=== PATIENT | female | born 1960 | race Caucasian/White ===

== ENCOUNTER 2016-11-02 11:54 | Day surgery (SDC) | payer BC ==
--- NOTE | ~2016-11-02 | EGD ---
EGD REPORT [facility] [address] [address] NAME: JOSEFINA GUALLPA : 58 STATUS : REG [facility] PAT#: [id number] AGE: 56 ADM/REG DATE : 11/02/16 MR#: [id number] REPORT SERV DATE: 11/02/16 DICTATED BY: VIJAY AZEVEDO DATE: 11/02/16 REPORT STATUS : Draft [facility]ANS[facility]IBED [facility]: [facility] DATE: 11/02/16 Endoscopy Center Patient Name: Josefina Guallpa Date of : 1960 Attending MD: VIJAY AZEVEDO MD Procedure Date No Time: 11/02/2016 Procedure: Colonoscopy Indications: Chronic diarrhea Referring MD: GABINO BRYANT Medicines: Propofol per Anesthesia Complications: No immediate complications. Procedure: Pre-Anesthesia Assessment: - ASA Grade Assessment: IV - A patient with severe systemic disease that is a constant threat to life. After I obtained informed consent, the scope was passed under direct vision. Throughout the procedure, the patient's blood pressure, pulse, and oxygen saturations were monitored continuously. The PCF [id number] was introduced through the anus and advanced to the ileocolonic anastomosis. The colonoscopy was performed without difficulty. The patient tolerated the procedure well. Findings: There was evidence of a prior end-to-side ileo-rectal anastomosis in the proximal rectum. This was patent. This was characterized by healthy appearing mucosa. The terminal ileum appeared normal. scope passed 120 into ileum and 300 ml of fecal transplant liquid was instilled Impression: - Patent end-to-side ileo-rectal anastomosis. - The examined portion of the ileum was normal. Recommendation: - The patient will be observed post-procedure, until all discharge criteria are met. - Return to previous diet today. - Continue present medications. - The findings and recommendations were discussed with the patient and their family. - After the procedure, if you experience any pain in abdomen or chest,shortness of breath,fever,chills,blood in stool,rectal bleeding,vomiting of any material,nausea,black stools or weakness or dizziness, GO TO THE EMERGENCY IMMEDIATELY!!!!!!!!! EGD REPORT [address] [address] NAME: JOSEFINA GUALLPA : 58 STATUS : REG [facility] PAT#: [id number] AGE: 56 ADM/REG DATE : 11/02/16 MR#: [id number] REPORT SERV DATE: 11/02/16 DICTATED BY: VIJAY AZEVEDO. DATE: 11/02/16 REPORT STATUS : Draft TRANSCRIBED BY: [employer] DATE: 11/02/16 Procedure Code(s): --- Professional --- 20193, Colonoscopy, flexible, proximal to splenic flexure; diagnostic, with or without collection of specimen(s) by brushing or washing, with or without colon decompression (separate procedure) Diagnosis Code(s): --- Professional --- Z98.0, Intestinal bypass and anastomosis status K52.9, Noninfective gastroenteritis and colitis, unspecified CPT copyright 2013 [employer]. All rights reserved. The codes documented in this report are preliminary and upon procedures analyst review may be revised to meet current compliance requirements. Vijay Azevedo MD VIJAY AZEVEDO MD 11/02/2016 2:25 PM This report has been signed electronically. Number of Addenda: 0 Note Initiated On: 11/02/2016 1:46 PM [address] [address]
[~2016-11-02 11:54] MED LIST: ADVAIR INH; ASAB PO; ATIVAN PO; ATRONASAL6 NAS; ATV.5 PO; ATV1 PO; AUG500 PO; AZACT2 IV; BUSPAR15 M1 PO; BUSPAR30 MG PO; BUSPAR5 PO; CALTRA600D PO; CENTRUM PO; CLIMARA 0.1 MG0.1 MG TOP; CLIMARA0.1 MG TD; COMP10B PO; CORTEF20 MG PO; CYMBALTA PO; CYMBALTA60 PO; DEXILANT PO; DIL4TAB PO; DITRO5 PO; DOX25 PO; DOXEPIN PO; DURA100 TOP; DURA25 TOP; DURA50 TOP; ELESTRIN TD; ESTRACE VAG0.1 MG/GM V; ESTRACE VAGIN42.5 GM V; ESTRACE VAGINAL CREA V; ESTRADIOL2 MG OR; ESTRADIOL2 MG PO; EXELON4.6T TOP; Estradiol TD; FISH-EPA1000 MG PO; FLAG500TAB PO; FLAXSEED OIL1200 MG PO; FLEX PO; FLEXERIL PO; FLONASE NAS; FLUCON150 PO; FOSAMAX PLUS PO; K500 PO; KLONO1 PO; KLONO2 PO; KLOR-CON M2020 MEQ PO; L20 PO; LEVALBUTEROL INH; LEVOTHYROXIN75 MCG PO; LEVOTHYROXINE PO; LINZESS 290 M290 MCG PO; LIOR10 PO; LYRICA PO; LYRICA300 MG PO; MARI5 PO; MARINOL PO; METOCLOPRAMIDE PO; MINIPRESS 2 MG C2 MG PO; MIRALAXPKT PO; MOBIC15 MG PO; MORPHINE PO; MORPHINE SULFATE PO; MSIMMR15 PO; NATURA2 OPH; NEUR600 PO; OMNICEF300 PO; P10 PO; PCET PO; PHENERGAN (G25 MG/ML IM; PHENERGAN 2525 MG/ML IM; PLAQ200B PO; PR25 IM; PR25P IM; PROTONIX PO; PROVHFA INH; PROZAC40 MG PO; RANITIDINE300 MG PO; REG PO; REG10MGP IM; RESTORIL30 MG PO; SEROQUEL1C PO; SINGULAIR1 PO; SMOG ENEMA PR; SPIRO25 PO; SPIRO50 PO; SPIRONOLACTONE PO; SYN.025B PO; SYN.05 PO; TERAZOL V; TRANSSCOP TOP; TRAZ100 PO; TRAZODONE PO; V5 PO; VAGIFEM10 MCG VA; VAGIFEM25 MCG V; VALIUM10 MG PO; VANCOCIN HCL125 MG PO; VESICARE10 MG PO; VITAMIN C1000 MG PO; VITAMIN D1000 UNI1 PO; VITE PO; VOLTAREN1 % TOP; Vagifem V; WOMENS MULTI PO; XENICAL120 MG PO; XOPENEX0.31 MG INH; XOPENEX1.25 MG/3 INH; ZANTAC300 MG PO; ZEGERID1 CA1 PO; ZINC GLUCON50 MG PO; ZOFRAN8 PO; ZYRTEC ALLGY10 MG PO; [UNRECOGNIZED DRUG - CODE] PR; [UNRECOGNIZED DRUG - OTHER] PO; [UNRECOGNIZED DRUG - OTHER] PO; [UNRECOGNIZED DRUG - OTHER] PO; [UNRECOGNIZED DRUG - OTHER] V
[2016-12-30] MEDS ORDERED: morphine PO (15:09)
[2016-12-30] MEDS ORDERED: NUCYNTA50 MG PO (15:10)
[2016-12-30] MEDS ORDERED: MARI5 PO (15:10)
== END 2016-11-02 23:59 | disposition home or self-care (01) ==
LOC: DMU 11:54
PROVIDERS: Internal Medicine Gastroenterology
PROC: 0DJD8ZZ Inspection of Lower Intestinal Tract, Via Natural or Artificial Opening Endoscopic (ICD-10-PCS; principal; 2016-11-02 11:00)
DX: K52.9 Noninfective gastroenteritis and colitis, unspecified (principal); F03.90 Unspecified dementia, unspecified severity, without behavioral disturbance, psychotic disturbance, mood disturbance, and anxiety; G47.33 Obstructive sleep apnea (adult) (pediatric); J45.909 Unspecified asthma, uncomplicated; E11.43 Type 2 diabetes mellitus with diabetic autonomic (poly)neuropathy; K31.84 Gastroparesis; M19.90 Unspecified osteoarthritis, unspecified site; M79.7 Fibromyalgia; K21.9 Gastro-esophageal reflux disease without esophagitis; K58.9 Irritable bowel syndrome, unspecified; E03.9 Hypothyroidism, unspecified; D64.9 Anemia, unspecified; Z90.49 Acquired absence of other specified parts of digestive tract; Z88.8 Allergy status to other drugs, medicaments and biological substances; Z98.0 Intestinal bypass and anastomosis status; Z86.73 Personal history of transient ischemic attack (TIA), and cerebral infarction without residual deficits; Z99.89 Dependence on other enabling machines and devices; Z98.1 Arthrodesis status; Z91.040 Latex allergy status; Z79.899 Other long term (current) drug therapy; Z98.890 Other specified postprocedural states; Z90.710 Acquired absence of both cervix and uterus

== ENCOUNTER 2016-11-10 16:40 | Inpatient (IN) | payer BC ==
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
--- NOTE | ~2016-11-10 | EGD ---
EGD REPORT [facility] [address] [address] NAME: JOSEFINA GUALLPA : 58 STATUS : ADM IN PAT#: [id number] AGE: 56 ADM/REG DATE : 11/10/16 MR#: [id number] REPORT SERV DATE: 11/14/16 DICTATED BY: VIJAY AZEVEDO DATE: 11/14/16 REPORT STATUS : Draft [facility]ANS[facility]ED [facility]: [facility] DATE: 11/14/16 Endoscopy Center Patient Name: Josefina Guallpa Date of : 1960 Attending MD: VIJAY AZEVEDO MD Procedure Date No Time: 11/14/2016 Procedure: Upper GI endoscopy Indications: Dysphagia Referring MD: GABINO BRYANT Medicines: Propofol per Anesthesia Complications: No immediate complications. Procedure: Pre-Anesthesia Assessment: - ASA Grade Assessment: III - A patient with severe systemic disease. After obtaining informed consent, the endoscope was passed under direct vision. Throughout the procedure, the patient's blood pressure, pulse, and oxygen saturations were monitored continuously. The GIF H190 [id number] was introduced through the mouth, and advanced to the third part of duodenum. The upper GI endoscopy was accomplished without difficulty. The patient tolerated the procedure well. Findings: Patchy candidiasis was found in the lower third of the esophagus. A small amount of a phytobezoar was found in the gastric antrum. The examined duodenum was normal. Impression: - Monilial esophagitis. - A small amount of a phytobezoar in the stomach. - Normal examined duodenum. Procedure Code(s): --- Professional --- 35186, Esophagogastroduodenoscopy, flexible, transoral; diagnostic, including collection of specimen(s) by brushing or washing, when performed (separate procedure) Diagnosis Code(s): --- Professional --- B37.81, Candidal esophagitis T18.2XXA, Foreign body in stomach, initial encounter R13.10, Dysphagia, unspecified CPT copyright 2013 [employer]. All rights reserved. EGD REPORT [address] [facility] [address] NAME: JOSEFINA GUALLPA : 58 STATUS : ADM IN [facility]#: [id number] AGE: 56 ADM/REG DATE : 11/10/16 MR#: [id number] REPORT SERV DATE: 11/14/16 DICTATED BY: VIJAY AZEVEDO. DATE: 11/14/16 REPORT STATUS : Draft TRANSCRIBED BY: [employer] DATE: 11/14/16 The codes documented in this report are preliminary and upon remote medical coder review may be revised to meet current compliance requirements. Vijay Azevedo MD VIJAY AZEVEDO MD 11/14/2016 2:45 PM This report has been signed electronically. Number of Addenda: 0 Note Initiated On: 11/14/2016 2:14 PM Scope Withdrawal Time 0 hours 0 minutes 0 seconds [address] [place] [address]
--- NOTE | ~2016-11-10 | DS ---
Discharge Summary [facility] [address] [place]. 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 CONSULTATIONS: To hospitalist, Vascular Surgery, and Psychiatry. PROCEDURES: Right IJ Port-A-Cath insertion. CT of the abdomen and pelvis done on the 11/16/2016 showing partial colectomy, right lower quadrant anastomosis, short length overall residual colon. CT of the brain done on 11/19/[address] head CT. No acute intracranial abnormality. Ultrasound of the lower extremity on 11/15/2016 showing negative bilateral lower extremity ultrasounds. Swallowing study done on 11/18/2016. CURRENT PHYSICAL FINDINGS AND HISTORY OF PRESENT ILLNESS: Please see initial dictated H and P as well as consultations from prior physicians. INTERIM SUMMARY: The patient was admitted with volume depletion, diarrhea, dehydration, nausea, vomiting, and dysphagia. Vital signs at the time of admission: BP was 119/63, temperature was 98.4, and the patient has had no significant temperature during her hospital stay. Initial creatinine was 1.39. It appeared her baseline was between 1.2 and 1.3. She did reach a high creatinine of 2.06 on 11/20/2016, felt to be related to her CT scan. Repeat was 1.58 on the 11/21/2016. Stool for C difficile was negative on the . HOSPITAL COURSE: The patient was admitted with above complaints. She was admitted by the GI Service. Home medications were reviewed and dosed appropriately. Lab work and tests were as noted above. Hospitalist was consulted for edema and shortness of breath. Psychiatry was consulted for her anxiety. Hospitalist Service initially placed her on DuoNeb. Psychiatry saw her, changed her Ativan, and upped her Seroquel. Vascular access was a problem and thus Vascular Surgery was consulted for a line placement. Her symptoms continued, so GI changed her Protonix to Pepcid. She was put on DVT prophylaxis. She was given IV fluids as needed. Echocardiogram and Dopplers were ordered to assess for possible causes of her dyspnea and dependent edema, and these were negative. She was also screen for adrenal insufficiency, although her a.m. cortisol was low. She had appropriate response to her cortisol stim test, so her steroids were tapered off without consequence. As she titrated up on her Seroquel, she seemed to have excess sedation, adjustments were made. She also performed a swallow study and thicken liquids rather than a mechanical soft per those recommendations. She then underwent CT scan, she had a slight bump in her creatinine as Discharge Summary [address] [place]. [address] NAME: JOSEFINA ARNETT : 58 STATUS : ADM IN PAT#: [id number] AGE: 56 ADM/REG DATE : 11/10/16 MR#: [id number] REPORT SERV DATE: 11/21/16 DICTATED BY: KAYLA ARIAS DATE: 11/21/16 REPORT STATUS : Draft TRANSCRIBED BY: MELLY DATE: 11/21/16 noted above, but this is currently trending down. She responded well to diuretics for her dependent edema, and these were slowly tapered back and held when her creatinine was somewhat high. GI continued to follow through evaluation and titrated her morphine she also received some albumin and Lasix. She continued to progress well. She was ambulating. She was tolerating p.o. Medications were helping her high output state. Neurology saw her for some complaints of stuttering. Outpatient followup and Speech Therapy were recommended. The patient was felt to reach maximum hospital benefit and was discharged on 11/21/2016. Prescriptions were for Klonopin 1 mg half to 1 q.h.s. Otherwise, she will continue Flexeril 10 t.i.d., Caltrate 600+ D at h.s., Centrum multivitamin, Sinequan 25 at h.s., Kytril 1 mg t.i.d., levothyroxine 50, Imodium 2 four times a day, Claritin 10, morphine 5 b.i.d. and dose decreased from 15 q.i.d., multivitamin one per day, Ditropan 5 b.i.d., Lyrica 300 at h.s., Protonix 40, Aldactone 25, Vagifem, Hair and Skin and Nails, Artificial Tears, Flonase inhaler, and Seroquel dose will be 100 q.h.s. Outpatient per Speech Therapy. Follow up Psychiatry. Follow up Dr. Romero and follow up with her PCP after above. She has a psychiatric appointment on this Monday and further Seroquel adjustments per them. DICTATED BY: Kayla Arias M.D. TLF/MODL Kayla Arias M.D. / [id number] CC: Robi Yancey M.D.
--- NOTE | ~2016-11-10 | HP ---
History And Physical [address] [place]. [address] NAME: JOSEFINA ARNETT : 58 STATUS : ADM IN [facility]#: [id number] AGE: 56 ADM/REG DATE : 11/10/16 MR#: [id number] REPORT SERV DATE: 11/10/16 DICTATED BY: VIJAY AZEVEDO DATE: 11/10/16 REPORT STATUS : Draft TRANSCRIBED BY: MODJaziel DATE: 11/10/16 DATE OF ADMISSION: 11/10/2016 CHIEF COMPLAINT: Refractory diarrhea, dehydration, nausea, vomiting, and dysphagia. 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 She has had recurrent C difficile. She has had at least four episodes. Ten days ago, she had a fecal microbiota transplant. She is on morphine four times a day to control her diarrhea. She does have a gastric pacer for gastroparesis. For the last few days, she is having dysphagia, vomiting, feels bad, orthostatic dizziness. Her C difficile two days ago was negative. Laboratory work did not show any dehydration. PAST MEDICAL HISTORY: 1. Gastroparesis. 2. Some loss of cognitive ability. SURGICAL HISTORY: 1. Total colectomy. 2. Ileorectal anastomosis. 3. Cystocele. 4. Rectocele. 5. Gastric pacer. 6. Kidney stones. 7. Oophorectomy. 8. Spinal surgery. 9. Cholecystectomy. FAMILY HISTORY: Negative for cancer or Sharma syndrome. MEDICATIONS AT HOME: Pantoprazole 40 mg b.i.d., doxepin, Synthroid, Marinol, lorazepam, Flexeril, Lyrica, iron, trazodone, morphine for diarrhea, Seroquel. Recently finished Dificid. ALLERGIES: NAPROSYN. PHYSICAL EXAMINATION: VITAL SIGNS: Blood pressure 127/80; no orthostatic change. Pulse 100, temperature 97.9. GENERAL: Looks moderately ill, disheveled. HEENT: Pupils are equal, reactive to light and accommodation. Mouth, dry mucous membranes. Trachea, midline. NECK: No limitation of motion. CHEST: Clear to auscultation and percussion. CARDIAC: Normal. No murmur or gallop. ABDOMEN: Gastric pacer palpated in the right lower quadrant. EXTREMITIES: Have some mild lower extremity edema. History And Physical [place] [address] [facility] [place]. [address] NAME: JOSEFINA ARNETT : 58 STATUS : ADM IN [facility]#: [id number] AGE: 56 ADM/REG DATE : 11/10/16 MR#: [id number] REPORT SERV DATE: 11/10/16 DICTATED BY: VIJAY AZEVEDO DATE: 11/10/16 REPORT STATUS : Draft TRANSCRIBED BY: MELLY DATE: 11/10/16 IMPRESSION: 1. Diarrhea, increasing from somewhat shortened bowel with total colectomy. 2. Clostridium difficile negative. 3. Nausea and vomiting. 4. Dysphagia. 5. Some psychiatric difficulty. 6. Some loss of cognitive feeling. 7. 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 PLAN: 1. We will admit for IV fluids. 2. Pain control. 3. Psych and Medicine consult. 4. May need a PICC or port placed. MG/MODL Vijay Azevedo M.D. / [id number] CC: Robi Yancey M.D.
--- NOTE | ~2016-11-10 | OP ---
Record Of Operation [facility] [address] [place]. [address] NAME: JOSEFINA ARNETT : 58 STATUS : ADM IN PAT#: [id number] AGE: 56 ADM/REG DATE : 11/10/16 MR#: [id number] REPORT SERV DATE: 11/15/16 DICTATED BY: KEM NEWTON DATE: 11/14/16 REPORT STATUS : Draft TRANSCRIBED BY: MELLY DATE: 11/14/16 DATE OF PROCEDURE: 11/11/2016 PREOPERATIVE DIAGNOSIS: Phlebosclerosis. POSTOPERATIVE DIAGNOSIS: Phlebosclerosis. PROCEDURE: Right IJ Port-A-Cath insertion. SURGEON: Kem Newton M.D. BILL COLLECTOR: None. ANESTHESIA: MAC plus local. INDICATIONS: The patient is a 56-year-old female with a history of difficult IV access and the need for intravenous hydration. She has had a port placed in the past, but this was removed. She now needs a new port for fluid administration. Thus, she was consented for intervention. DESCRIPTION OF PROCEDURE: After informed consent was obtained, the patient was taken to the operating room and placed in the supine position on the operating table. Monitored anesthesia was administered. The patient's right neck and chest were prepped and draped in usual sterile fashion. Ultrasound-guided access was obtained to the right internal jugular vein. The ultrasound image was documented on the chart. I passed a wire centrally. I anesthetized the right chest. I made a transverse skin incision and created a subcutaneous pocket. I tunneled the port tubing from the right chest to the right neck. I used fluoroscopy to estimate the catheter length. I cut the catheter, attached it to the port, and fixated the port within the subcutaneous pocket. I inserted a peel-away sheath over the aforementioned wire using fluoroscopic guidance. I inserted the catheter into the away sheath under fluoroscopy and peeled away the sheath. I confirmed that the catheter was not kinked. It aspirated and flushed well. The right chest wound was closed along with the right neck wound. The patient tolerated the procedure well without any intraprocedural complications noted. BUSINESS DEVELOPMENT RECRUITER/MELLY Kem Newton M.D. / [id number] CC: Shorty Engel M.D. Record Of Operation [address] [address] NAME: JOSEFINA ARNETT : 58 STATUS : ADM IN PAT#: [id number] AGE: 56 ADM/REG DATE : 11/10/16 MR#: [id number] REPORT SERV DATE: 11/15/16 DICTATED BY: KEM NEWTON DATE: 11/14/16 REPORT STATUS : Draft TRANSCRIBED BY: MODL DATE: 11/14/16 Vijay Romero M.D.
--- NOTE | ~2016-11-10 | HP ---
History And Physical [place] [id number] [facility] [place]. [address] NAME: JOSEFINA ARNETT : 58 STATUS : ADM IN [facility]#: [id number] AGE: 56 ADM/REG DATE : 11/10/16 MR#: [id number] REPORT SERV DATE: 11/10/16 DICTATED BY: VIJAY AZEVEDO DATE: 11/10/16 REPORT STATUS : Draft TRANSCRIBED BY: MODL DATE: 11/10/16 DATE OF ADMISSION: 11/10/2016 CHIEF COMPLAINT: Nausea, vomiting, diarrhea. HISTORY OF PRESENT ILLNESS: This patient has a history of total colectomy with ileorectal anastomosis. She has had four episodes of C. diff. Recently treated with Dificid. She had a fecal transplant about 10 days ago. She is having diarrhea, 15-20 stools a day. Feels weak. Orthostatic dizziness. She takes liquid morphine 15 mg four times a day to control her diarrhea from her shortened bowel. She has been unable to keep it down. She is having dysphagia. She does have a gastric pacer for gastroparesis. Last battery change about two years ago. She is having dysphagia. Feels weak. Recent laboratory work was unremarkable. C. difficile was negative. She recently had a kidney infection around July and was started on IV vancomycin and Azactam. PAST MEDICAL HISTORY: 1. Gastroparesis. 2. Recurrent urinary tract infection. 3. Renal stones. 4. 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 5. History of some asthma. 6. Problem with cognitive difficulty. PAST SURGICAL HISTORY: 1. Colectomy as noted. 2. Cystocele/rectocele repair. 3. Oophorectomy. 4. Spinal surgery. FAMILY HISTORY: No Sharma type syndrome. MEDICATIONS AT HOME: Include pantoprazole, doxepin, Synthroid, lorazepam, Flexeril, Zyrtec, Lyrica, iron, morphine, clonazepam, and Seroquel. Recently finished Dificid. ALLERGIES: PENICILLINS. PHYSICAL EXAMINATION: GENERAL: Looks ill. VITAL SIGNS: Blood pressure 110/60, pulse 100. Orthostatic drop. HEENT: Dry mucous membranes. Has a rash on the right side of her mouth on her chin. Trachea is midline. No adenopathy. Thyroid not increased. CHEST: Clear to auscultation and percussion. CARDIAC: No murmur or gallop. ABDOMEN: Soft. Pacer felt in the right lower quadrant. EXTREMITIES: Has some 1 to 2+ lower extremity edema. History And Physical [address] [place]. [address] NAME: JOSEFINA ARNETT : 58 STATUS : ADM IN [facility]#: [id number] AGE: 56 ADM/REG DATE : 11/10/16 MR#: [id number] REPORT SERV DATE: 11/10/16 DICTATED BY: VIJAY AZEVEDO DATE: 11/10/16 REPORT STATUS : Draft TRANSCRIBED BY: MELLY DATE: 11/10/16 IMPRESSION: 1. Problem with nausea, vomiting, increased diarrhea, dehydration. Recently treated with FMT. Has negative C. diff. 2. Dysphagia. 3. Chronic abdominal pain. 4. History of gastroparesis with pacer. 5. Possible strep infection on the face. 6. Psychiatric problem with depression and also cognitive function. 7. History of recent severe urinary tract infection. PLAN: 1. We will admit for IV hydration. 2. Pain control. 3. Medicine and Psych consults. 4. May need central line placed for chronic access such as port. 5. May also consider cardiac echo. It should be noted her O2 saturation was 91% on room air. MG/MELLY Vijay Azevedo M.D. / [id number] CC: Robi Yancey M.D.
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
--- NOTE | ~2016-11-10 | IDS ---
Interim Discharge Summary [facility] [address] [place]. [address] NAME: JOSEFINA ARNETT : 58 STATUS : ADM IN PAT#: [id number] AGE: 56 ADM/REG DATE : 11/10/16 MR#: [id number] REPORT SERV DATE: 11/17/16 DICTATED BY: VIJAY AZEVEDO DATE: 11/16/16 REPORT STATUS : Draft TRANSCRIBED BY: MODL DATE: 11/16/16 ADMISSION DATE: 11/10/2016 DISCHARGE DATE: DISCHARGE DIAGNOSES: 1. 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 2. Gastroparesis with gastric pacemaker. 3. Lower extremity edema. 4. Status post fecal transplant. CASE HISTORY: This patient has a complicated medical history. She had a total colectomy and ileal rectal anastomosis at [facility], that was for refractory constipation. She has had four episodes of C. diff treated with recently Dificid. She had a fecal transplant one and half weeks prior to admission. She has significant diarrhea with 15 to 20 stools a day. Orthostatic dizziness. Liquid morphine has been somewhat controlling the diarrhea. She complained of dysphagia. She relates a history of Sjogren's, rheumatoid arthritis, bipolar disorder. Medications at home consisted of oral morphine liquid, Klonopin, Flexeril, Vagifem, Flonase, Kytril, Ditropan, Seroquel. On admission, she had mild orthostatic dizziness. She has a gastric pacer palpated. She does have some lower extremity edema. Admitting lab was fairly unremarkable. HOSPITAL COURSE: The patient was treated with IV fluids. She did have a skin rash on her face treated with Cleocin topical. Hospitalists were consulted. Due to lack of access, Port-A-Cath was placed. She had an EGD which showed some mild yeast. She had significant dysphagia. She really was not eating much. Increasing the morphine did help her diarrhea. She was seen by Dr. Chema Soriano. Also, Dr. Worrell saw her. Dr. Soriano thought she was in a more manic phase of her bipolar disorder. He increased her Seroquel to 200 at bedtime. Also, had increased her Klonopin to a milligram. She improved during the hospital stay, but was still having difficulties, really not eating much. It is unclear if the increase morphine to control her diarrhea is aggravating her gastroparesis. At the time of this dictation, CT scan pending. Her CHRISS was negative for connective tissue disease. She had a recent C. difficile prior to admission that was normal. MG/MODL Vijay Azevedo M.D. / [id number] CC: Interim Discharge Summary [address] [place] [address] NAME: JOSEFINA ARNETT : 58 STATUS : ADM IN [facility]#: [id number] AGE: 56 ADM/REG DATE : 11/10/16 MR#: [id number] REPORT SERV DATE: 11/17/16 DICTATED BY: VIJAY AZEVEDO DATE: 11/16/16 REPORT STATUS : Draft TRANSCRIBED BY: MODL DATE: 11/16/16 Robi Yancey M.D.
--- NOTE | ~2016-11-10 | CN ---
Consultation Report [facility] [address] [place]. [address] NAME: JOSEFINA ARNETT : 58 STATUS : ADM IN PAT#: [id number] AGE: 56 ADM/REG DATE : 11/10/16 MR#: [id number] REPORT SERV DATE: 11/11/16 DICTATED BY: SERENA FINK DATE: 11/11/16 REPORT STATUS : Draft TRANSCRIBED BY: MODJaziel DATE: 11/11/16 DATE OF CONSULTATION: CHIEF COMPLAINT: Nausea, vomiting, diarrhea. The patient sent from Dr. Romero's office for consultation for edema and dyspnea and shortness of breath episodes. HISTORY OF PRESENT ILLNESS: The patient is a 56-year-old female with past medical history of colectomy with ileorectal anastomosis, four episodes of C. diff treated with Dificid and fecal transplant approximately one and half weeks ago, however, is still having significant amount of diarrhea with 15-20 stools per records and symptomatic with orthostatic dizziness. She is on multiple medications including liquid morphine q.i.d. for diarrhea for shortened bowel. She has been having such difficulty with symptoms that she has gotten progressively weaker, however, she has also noted that she has been gaining more weight. Review of prior imaging as noted; significant amount of body habitus changes. The patient has also noted 2+ to 3+ edema in her legs. She did have recent fall with subsequent bruising, but this has healed in the right leg. The patient does not report any improvement or worsening symptoms for the shortness of breath except when she has eating or swallowing episode she reports that she feels like she is choking and food essentially get stuck and has had then chest pain at that time. There is additional mild nausea during that episode, is becoming more frequent. REVIEW OF SYSTEMS: For additional 10-point review of systems negative except for that noted in the HPI. PAST MEDICAL HISTORY: Gastroparesis, UTIs, renal stones, recurrent C diff, Sjogren's, reflux, rheumatoid arthritis, PTSD, bipolar psychosis, gastric pacer secondary to gastroparesis, hypertension, hypothyroidism, chronic pain on chronic narcotics. SURGICAL HISTORY: Gastric pacemaker, total colectomy with Sjogren's and cystoscopy with retrograde pyelogram recently for left obstructing ureteral stone, Dr. Quijano. ALLERGIES: NAPROSYN AND ADHESIVES. SOCIAL HISTORY: No smoking, alcohol, or illicits. FAMILY HISTORY: Coronary artery disease, hypertension, cancer. HOME MEDICATIONS: Bion, Caltrate, Zyrtec, Klonopin, Flexeril, Sinequan, Vagifem, Flonase, Kytril, levothyroxine, Ativan, morphine, Centrum, Ditropan, Protonix, Lyrica, Seroquel, Aldactone, and Hair and Skin Nail tablet. PHYSICAL EXAMINATION: VITAL SIGNS: The patient's blood pressure 120/71, O2 saturations 94% on room air, temperature 97.4, pulse 76, respirations 18. GENERAL: Appears older than stated age. No acute distress. Consultation Report [address] [place]. [address] NAME: JOSEFINA ARNETT : 58 STATUS : ADM IN [facility]#: [id number] AGE: 56 ADM/REG DATE : 11/10/16 MR#: [id number] REPORT SERV DATE: 11/11/16 DICTATED BY: SERENA FINK DATE: 11/11/16 REPORT STATUS : Draft TRANSCRIBED BY: MELLY DATE: 11/11/16 EYES: Does have mild haze with lid that is greater than 50% of what appears to be somewhat dazed but is alert and oriented. No proptosis. No scleral icterus. EOMI. HEENT: Moist mucous membranes. Tongue midline. Head is normocephalic, atraumatic. NECK: No JVD. CHEST: Equal chest expansion. No wheezes, no rales grossly. Mildly decreased lung sounds in lower lung jurado. CV: Intact regular rate. No rubs. 3+ edema bilaterally. ABDOMEN: Soft, nontender, nondistended. Bowel sounds positive. MUSCULOSKELETAL: Moves all extremities x4. SKIN: Warm, dry. NEUROLOGIC: Hand symmetrical hand strength. PSYCH: Appears appropriate mood and affect. LABS: CMP: BUN creatinine 11 and 1.39, sodium 137, potassium 4.5, chloride 103, bicarb 26, lipase 72. CRP 29.7, alkaline phosphatase 134. CBC; grossly within normal limits. C. diff recently were negative. ASSESSMENT AND PLAN: 1. Shortness of breath. 2. Edema. 3. Diarrhea. 4. Anxiety. 5. Gastroparesis history with gastric pacemaker. PLAN: 1. For shortness of breath when discussion with the patient, the patient reports these are episodes that have happened during her swallowing episodes when she has subsequent choking episodes, IT last about 3 to 4 minutes, questionable achalasia component. We will check chest x-ray as the patient does additionally have edema. We will check TSH and BNP. 2. For edema check; TSH, BMP, cortisols, CMP for liver profile. She do not have any acute hepatomegaly on exam currently but notable physical changes when reviewing her prior pictures and 3+ edema bilaterally. If BNP elevated may require echocardiogram. 3. Diarrhea, recent fecal transplant workup per Dr. Levin. 4. Anxiety, on multiple medications that includes medications for insomnia. 5. Gastroparesis. The patient is questioning pacer failure, has symptoms currently similar to which the patient had in the past with prior pacer battery failure. Monitor clinically, overall symptoms. DDN/MELLY Serena Fink MD Consultation Report [address] [address] NAME: JOSEFINA ARNETT : 58 STATUS : ADM IN [facility]#: [id number] AGE: 56 ADM/REG DATE : 11/10/16 MR#: [id number] REPORT SERV DATE: 11/11/16 DICTATED BY: SERENA FINK DATE: 11/11/16 REPORT STATUS : Draft TRANSCRIBED BY: MODL DATE: 11/11/16 / [id number] CC: iVjay Romero M.D. Shorty Engel M.D.
--- NOTE | ~2016-11-10 | DS ---
Discharge Summary [facility] [address] [place]. [address] NAME: JOSEFINA ARNETT : 58 STATUS : DIS IN PAT#: [id number] AGE: 56 ADM/REG DATE : 11/10/16 MR#: [id number] REPORT SERV DATE: 11/22/16 DICTATED BY: VIJAY AZEVEDO DATE: 11/21/16 REPORT STATUS : Draft TRANSCRIBED BY: MODL DATE: 11/21/16 ADMISSION DATE: 11/10/2016 DISCHARGE DATE: 11/21/2016 FINAL DIAGNOSES: 1. 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 2. Gastroparesis status post gastric pacemaker. 3. Status post fecal transplant for Clostridium difficile colitis. 4. Oropharyngeal dysphagia of unclear etiology may be a neuromuscular dysfunction of the hypopharynx. CASE HISTORY: This is an addition to the interim discharge summary dictated 11/16. The patient improved since the previous interim discharge summary as far as the peripheral edema, she was given Lasix and albumin. CT scan of the abdomen was negative. She did notice some transient increase in kidney injury with a creatinine went from normal up to 2.06 and came down to 1.58 with hydration of normal saline. This felt that she may have been related to the IV dye from the CT plus mild volume depletion. Her calcium went from a high of 11.5, down to 9.7. Her brain CT was negative. Because of some aura of dysphagia, she did have a swallowing study which showed some aspiration though not deep during the study. She had pooling in the vallecula and piriform sinuses. Speech therapy recommended swallow mechanical soft diet with nectar thick it. Because of the oropharyngeal dysphagia, neurology was consulted. She also developed stuttering. The neurologist Dr. Hooks felt that some of this might have been psychogenic. Brain CT was negative. The speech therapist thought [id number] oropharyngeal dysphagia characterized by decreased tongue base retraction, and decreased laryngeal elevation, and decreased epiglottic inversion. She did seem to do better on the diet. Her creatinine did improve with IV fluids going down from 2.06 to 1.58, her baseline is probably 0.87 to 1. It should be noted, even though her serum cortisol was low she had an appropriate response to Cortrosyn stimulation test. She was given Diflucan for possible Nicky and did not notice any improvement. On one or two oral morphine liquid 5 mg twice a day plus Imodium she was having a fairly normal stools. PLAN: The patient will be hopefully arrange for Outpatient Psychiatric Therapy. She will continue on a mechanical soft diet with honey thickened liquids. Medicines include doxepin 25 mg h.s., Kytril 1 mg t.i.d., Synthroid 50 mcg daily, loperamide 2 mg 4 times a day, morphine liquid 5 mg once or twice a day, oxybutynin 5 mg daily, Lyrica 150 mg at bedtime, Seroquel 300 mg at bedtime, Pantoprazole 40 mg daily. She will be arranged to have speech therapy for her swallowing as well as psychiatric evaluation. Follow up in a few weeks in the office. Prognosis is guarded of course. DICTATED BY: Vijay Azevedo M.D. Discharge Summary [address] [address] NAME: JOSEFINA ARNETT : 58 STATUS : DIS IN PAT#: [id number] AGE: 56 ADM/REG DATE : 11/10/16 MR#: [id number] REPORT SERV DATE: 11/22/16 DICTATED BY: VIJAY AZEVEDO DATE: 11/21/16 REPORT STATUS : Draft TRANSCRIBED BY: MELLY DATE: 11/21/16 /MELLY Vijay Azevedo M.D. / [id number] CC: Robi Yancey M.D.
[2016-11-10] MEDS ORDERED: [UNRECOGNIZED DRUG - OTHER] PO (17:42)
[2016-11-10] MEDS ORDERED: MORPHINE SUL PO (17:42)
[2016-11-10] MEDS ORDERED: KLONO1 PO (17:42)
[2016-11-10] MEDS ORDERED: LEVOTHYROXIN50 MCG PO (17:43)
[2016-11-10] MEDS ORDERED: FLEX PO (17:43)
[2016-11-10] MEDS ORDERED: ATV1 PO (17:43)
[2016-11-10] MEDS ORDERED: SEROQUEL1C PO (17:43)
[2016-11-10] MEDS ORDERED: LYRICA300 MG PO (17:43)
[2016-11-10] MEDS ORDERED: DITRO5 PO (17:44)
[2016-11-10] MEDS ORDERED: ZYRTEC ALLGY10 MG PO (17:44)
[2016-11-10] MEDS ORDERED: SPIRO50 PO (17:44)
[2016-11-10] MEDS ORDERED: DOX25 PO (17:44)
[2016-11-10] MEDS ORDERED: PROTONIX PO (17:44)
[2016-11-10] MEDS ORDERED: CENTRUM PO (17:45)
[2016-11-10] MEDS ORDERED: VAGIFEM10 MCG V (17:45)
[2016-11-10] MEDS ORDERED: HAIR/SKIN/NAILS PO (17:46)
[2016-11-10] MEDS ORDERED: CALTRA600D PO (17:46)
[2016-11-10] MEDS ORDERED: FLONASE NAS (17:46)
[2016-11-10] MEDS ORDERED: BION TEARS (17:46)
[2016-11-10 18:07] LABS: BASOPHILS 0.1 %; BASOPHILS ABSOLUTE 0.01 10/3/uL (0.0-0.16); EOSINOPHILS 2.1 %; HEMATOCRIT 36.3 % (36.0-48.0); HEMOGLOBIN 12.3 g/dL (12.0-16.0); IMMATURE GRANULOCYTES 0.2 %; IMMATURE GRANULOCYTES ABSOLUTE 0.02 10/3/uL (0.0-0.11); LYMPHOCYTES 12.2 %; LYMPHOCYTES ABSOLUTE 1.16 10/3/uL (0.67-4.30); MEAN CORPUS HGB CONC 33.9 g/dL (32.0-36.0); MEAN CORPUSCULAR HEMOGLOB 30.5 pg (26.0-34.0); MEAN CORPUSCULAR VOLUME 90.1 fL (80-100); MEAN PLATELET VOLUME 10.5 fL (9.2-13.0); MONOCYTES 10.1 %; MONOCYTES ABSOLUTE 0.96 10/3/uL (0.21-1.20); NEUTROPHILS 75.3 %; NEUTROPHILS ABSOLUTE 7.14 10/3/uL (2.02-8.40); RBC DISTRIBUTION WIDTH 13.3 % (12.0-16.0); RED CELL COUNT 4.03 10/6/uL (4.0-5.6)
[2016-11-10 18:08] LABS: MANUAL DIFF NO %; PLATELET COUNT 213 10/3/uL (150-400); WHITE BLOOD CELLS 9.5 10/3/uL (4.5-10.5)
[2016-11-10 18:21] LABS: A/G RATIO 1.1 (0.7-1.9); ALBUMIN 3.6 G/DL (3.5-5.0); ALKALINE PHOSPHATASE 134 U/L (45-117); C-REACTIVE PROTEIN 29.7 MG/L (<8.0); CALCIUM, SERUM 8.8 MG/DL (8.5-10.4); CHLORIDE, SERUM 103 MMOL/L (96-112); CO2 (CARBON DIOXIDE) 26 MMOL/L (24-34); CREATININE 1.39 MG/DL (0.55-1.02); GFR AFRICAN AMERICAN 49 ML/MIN (>=60); GFR NON AFRICAN AMERICAN 42 ML/MIN (>=60); GLOBULIN 3.3 G/DL (2.5-4.1); GLUCOSE, SERUM 77 MG/DL (60-99); SGPT(ALT) 26 U/L (5-65); SODIUM, SERUM 137 MMOL/L (135-148); TOTAL BILIRUBIN 0.6 MG/DL (0-1.2); TOTAL PROTEIN 6.9 G/DL (6.0-8.5)
[2016-11-10 18:27] LABS: BUN (BLOOD UREA NITROGEN) 11 MG/DL (6-23); POTASSIUM, SERUM 4.5 MMOL/L (3.5-5.3); SGOT(AST) 26 U/L (5-40)
[2016-11-11 07:10] LABS: BASOPHILS 0 %; EOSINOPHILS 5.2 %; HEMATOCRIT 34.1 % (36.0-48.0); HEMOGLOBIN 11.5 g/dL (12.0-16.0); LYMPHOCYTES 24.5 %; LYMPHOCYTES ABSOLUTE 0.95 10/3/uL (0.67-4.30); MEAN CORPUS HGB CONC 33.7 g/dL (32.0-36.0); MEAN CORPUSCULAR HEMOGLOB 30.6 pg (26.0-34.0); MEAN CORPUSCULAR VOLUME 90.7 fL (80-100); MEAN PLATELET VOLUME 10.1 fL (9.2-13.0); MONOCYTES 13.4 %; MONOCYTES ABSOLUTE 0.52 10/3/uL (0.21-1.20); NEUTROPHILS 56.9 %; PLATELET COUNT 159 10/3/uL (150-400); RBC DISTRIBUTION WIDTH 13.4 % (12.0-16.0); RED CELL COUNT 3.76 10/6/uL (4.0-5.6)
[2016-11-11 07:11] LABS: MANUAL DIFF NO %; WHITE BLOOD CELLS 3.9 10/3/uL (4.5-10.5)
[2016-11-11 07:24] LABS: BUN (BLOOD UREA NITROGEN) 10 MG/DL (6-23); CALCIUM, SERUM 8.2 MG/DL (8.5-10.4); CHLORIDE, SERUM 110 MMOL/L (96-112); CO2 (CARBON DIOXIDE) 23 MMOL/L (24-34); CREATININE 1.02 MG/DL (0.55-1.02); FREE T4 1.28 NG/DL (0.76-1.46); GFR AFRICAN AMERICAN 71 ML/MIN (>=60); GFR NON AFRICAN AMERICAN 61 ML/MIN (>=60); GLUCOSE, SERUM 80 MG/DL (60-99); POTASSIUM, SERUM 4.1 MMOL/L (3.5-5.3); SGOT(AST) 13 U/L (5-40); SGPT(ALT) 19 U/L (5-65); SODIUM, SERUM 141 MMOL/L (135-148); TOTAL BILIRUBIN 0.4 MG/DL (0-1.2); TOTAL PROTEIN 5.7 G/DL (6.0-8.5); ULTRASENSITIVE TSH 0.793 MCIU/ML (0.358-3.740)
[2016-11-11 07:25] LABS: ALBUMIN 2.8 G/DL (3.5-5.0); ALKALINE PHOSPHATASE 106 U/L (45-117); GLOBULIN 2.9 G/DL (2.5-4.1)
[2016-11-11 13:05] LABS: ASCORBIC ACID (UR NOT ORDER) NEG (NEG); BILIRUBIN, URINE NEGATIVE (NEG); KETONE, URINE NEGATIVE (NEG); LEUKOCYTE ESTERASE(NOT OR TRACE (NEG); WBC (NOT ORDERED) (RFLEX) 6 (0-5)
[2016-11-12 07:31] LABS: ALBUMIN 3.1 G/DL (3.5-5.0); ALKALINE PHOSPHATASE 112 U/L (45-117); BUN (BLOOD UREA NITROGEN) 7 MG/DL (6-23); CALCIUM, SERUM 8.7 MG/DL (8.5-10.4); CHLORIDE, SERUM 112 MMOL/L (96-112); CO2 (CARBON DIOXIDE) 26 MMOL/L (24-34); CREATININE 0.88 MG/DL (0.55-1.02); DIRECT BILIRUBIN 0.1 MG/DL (0.0-0.4); GFR AFRICAN AMERICAN 85 ML/MIN (>=60); GFR NON AFRICAN AMERICAN 73 ML/MIN (>=60); GLUCOSE, SERUM 66 MG/DL (60-99); INDIRECT BILIRUBIN(NOT ORDER) 0.3 MG/DL (0.1-0.9); PHOSPHORUS, SERUM 3.1 MG/DL (2.5-4.5); POTASSIUM, SERUM 4.3 MMOL/L (3.5-5.3); SGOT(AST) 16 U/L (5-40); SGPT(ALT) 23 U/L (5-65); SODIUM, SERUM 141 MMOL/L (135-148); TOTAL BILIRUBIN 0.4 MG/DL (0-1.2); TOTAL PROTEIN 6.3 G/DL (6.0-8.5)
[2016-11-13 08:29] LABS: BASOPHILS 0 %; EOSINOPHILS 0.4 %; EOSINOPHILS ABSOLUTE 0.03 10/3/uL (0.0-0.53); HEMATOCRIT 36.1 % (36.0-48.0); IMMATURE GRANULOCYTES 0.1 %; IMMATURE GRANULOCYTES ABSOLUTE 0.01 10/3/uL (0.0-0.11); LYMPHOCYTES 7.2 %; LYMPHOCYTES ABSOLUTE 0.49 10/3/uL (0.67-4.30); MEAN CORPUS HGB CONC 33.2 g/dL (32.0-36.0); MEAN CORPUSCULAR HEMOGLOB 30.8 pg (26.0-34.0); MEAN CORPUSCULAR VOLUME 92.6 fL (80-100); MEAN PLATELET VOLUME 10.4 fL (9.2-13.0); MONOCYTES 5.3 %; MONOCYTES ABSOLUTE 0.36 10/3/uL (0.21-1.20); PLATELET COUNT 168 10/3/uL (150-400); RBC DISTRIBUTION WIDTH 13.6 % (12.0-16.0)
[2016-11-13 08:30] LABS: MANUAL DIFF NO %; WHITE BLOOD CELLS 6.8 10/3/uL (4.5-10.5)
[2016-11-13 08:43] LABS: BUN (BLOOD UREA NITROGEN) 8 MG/DL (6-23); CALCIUM, SERUM 9.4 MG/DL (8.5-10.4); CHLORIDE, SERUM 111 MMOL/L (96-112); CO2 (CARBON DIOXIDE) 25 MMOL/L (24-34); CREATININE 0.87 MG/DL (0.55-1.02); GFR AFRICAN AMERICAN 86 ML/MIN (>=60); GFR NON AFRICAN AMERICAN 74 ML/MIN (>=60); GLUCOSE, SERUM 80 MG/DL (60-99); POTASSIUM, SERUM 4.5 MMOL/L (3.5-5.3); SODIUM, SERUM 141 MMOL/L (135-148)
[2016-11-14 08:34] LABS: BASOPHILS 0.2 %; BASOPHILS ABSOLUTE 0.01 10/3/uL (0.0-0.16); EOSINOPHILS 0.2 %; EOSINOPHILS ABSOLUTE 0.01 10/3/uL (0.0-0.53); HEMATOCRIT 35.7 % (36.0-48.0); HEMOGLOBIN 11.7 g/dL (12.0-16.0); IMMATURE GRANULOCYTES 0.2 %; IMMATURE GRANULOCYTES ABSOLUTE 0.01 10/3/uL (0.0-0.11); LYMPHOCYTES 8.5 %; MEAN CORPUS HGB CONC 32.8 g/dL (32.0-36.0); MEAN CORPUSCULAR HEMOGLOB 30.6 pg (26.0-34.0); MEAN CORPUSCULAR VOLUME 93.5 fL (80-100); MEAN PLATELET VOLUME 10.6 fL (9.2-13.0); MONOCYTES 5.8 %; MONOCYTES ABSOLUTE 0.34 10/3/uL (0.21-1.20); NEUTROPHILS 85.1 %; NEUTROPHILS ABSOLUTE 5.03 10/3/uL (2.02-8.40); PLATELET COUNT 175 10/3/uL (150-400); RED CELL COUNT 3.82 10/6/uL (4.0-5.6); WHITE BLOOD CELLS 5.9 10/3/uL (4.5-10.5)
[2016-11-14 08:35] LABS: MANUAL DIFF NO %
[2016-11-14 08:46] LABS: BUN (BLOOD UREA NITROGEN) 6 MG/DL (6-23); CALCIUM, SERUM 9.8 MG/DL (8.5-10.4); CHLORIDE, SERUM 111 MMOL/L (96-112); CO2 (CARBON DIOXIDE) 27 MMOL/L (24-34); CREATININE 1.08 MG/DL (0.55-1.02); GFR AFRICAN AMERICAN 66 ML/MIN (>=60); GFR NON AFRICAN AMERICAN 57 ML/MIN (>=60); GLUCOSE, SERUM 83 MG/DL (60-99); POTASSIUM, SERUM 4.1 MMOL/L (3.5-5.3); SODIUM, SERUM 143 MMOL/L (135-148)
[2016-11-14 09:18] LABS: HEPATITIS B SURFACE ANTIGEN NON-REACTIVE (NON-REACT)
[2016-11-14 09:22] LABS: HEPATITIS B CORE AB IGM NON-REACTIVE (NON-REAC); HEPATITIS C ANTIBODY NON-REACTIVE (NON-REACT)
[2016-11-14 09:23] LABS: HIV COMBO NON-REACTIVE (NON REAC)
[2016-11-14 09:24] LABS: HEP A ANTIBODY IGM NON-REACTIVE (NON-REACT)
[2016-11-14 11:59] LABS: ANA TITER <1:40 TITER
[2016-11-15 20:59] LABS: ALDOSTERONE 4.4 ng/dL (<39.2); ALDOSTERONE/RENIN RAT 0.3 ratio (0.1-3.7)
[2016-11-16 09:01] LABS: CALCIUM, SERUM 9.4 MG/DL (8.5-10.4); CHLORIDE, SERUM 110 MMOL/L (96-112); CREATININE 1.08 MG/DL (0.55-1.02); GFR AFRICAN AMERICAN 66 ML/MIN (>=60); GFR NON AFRICAN AMERICAN 57 ML/MIN (>=60); POTASSIUM, SERUM 3.4 MMOL/L (3.5-5.3); SODIUM, SERUM 148 MMOL/L (135-148)
[2016-11-16 09:02] LABS: BUN (BLOOD UREA NITROGEN) 10 MG/DL (6-23); CO2 (CARBON DIOXIDE) 32 MMOL/L (24-34); GLUCOSE, SERUM 100 MG/DL (60-99)
[2016-11-17 06:58] LABS: ALBUMIN 3.1 G/DL (3.5-5.0); ALKALINE PHOSPHATASE 105 U/L (45-117); BUN (BLOOD UREA NITROGEN) 12 MG/DL (6-23); CALCIUM, SERUM 9.7 MG/DL (8.5-10.4); CHLORIDE, SERUM 107 MMOL/L (96-112); CO2 (CARBON DIOXIDE) 33 MMOL/L (24-34); GLOBULIN 3.1 G/DL (2.5-4.1); POTASSIUM, SERUM 3.9 MMOL/L (3.5-5.3); PREALBUMIN 19.2 MG/DL (17.0-43.0); SGOT(AST) 15 U/L (5-40); SGPT(ALT) 21 U/L (5-65); SODIUM, SERUM 146 MMOL/L (135-148); TOTAL BILIRUBIN 0.3 MG/DL (0-1.2); TOTAL PROTEIN 6.2 G/DL (6.0-8.5)
[2016-11-17 06:59] LABS: CREATININE 1.67 MG/DL (0.55-1.02); GFR AFRICAN AMERICAN 39 ML/MIN (>=60); GFR NON AFRICAN AMERICAN 34 ML/MIN (>=60); GLUCOSE, SERUM 78 MG/DL (60-99)
[2016-11-17 10:11] LABS: ANTI SS-A NEGATIVE (NEGATIVE); ANTI SS-B NEGATIVE (NEGATIVE)
[2016-11-18 06:48] LABS: BUN (BLOOD UREA NITROGEN) 20 MG/DL (6-23); CALCIUM, SERUM 9.7 MG/DL (8.5-10.4); CHLORIDE, SERUM 101 MMOL/L (96-112); CO2 (CARBON DIOXIDE) 35 MMOL/L (24-34); CREATININE 1.68 MG/DL (0.55-1.02); GFR AFRICAN AMERICAN 39 ML/MIN (>=60); GFR NON AFRICAN AMERICAN 33 ML/MIN (>=60); GLUCOSE, SERUM 102 MG/DL (60-99); POTASSIUM, SERUM 3.5 MMOL/L (3.5-5.3); SODIUM, SERUM 143 MMOL/L (135-148)
[2016-11-19 06:06] LABS: CHLORIDE, SERUM 102 MMOL/L (96-112); CO2 (CARBON DIOXIDE) 36 MMOL/L (24-34); CREATININE 1.98 MG/DL (0.55-1.02); GFR AFRICAN AMERICAN 32 ML/MIN (>=60); GFR NON AFRICAN AMERICAN 27 ML/MIN (>=60); GLUCOSE, SERUM 88 MG/DL (60-99); POTASSIUM, SERUM 4.1 MMOL/L (3.5-5.3); SODIUM, SERUM 144 MMOL/L (135-148)
[2016-11-19 06:07] LABS: BUN (BLOOD UREA NITROGEN) 27 MG/DL (6-23); CALCIUM, SERUM 10.9 MG/DL (8.5-10.4)
[2016-11-20 04:26] LABS: BASOPHILS 0 %; EOSINOPHILS ABSOLUTE 0.22 10/3/uL (0.0-0.53); HEMATOCRIT 34.1 % (36.0-48.0); HEMOGLOBIN 11.1 g/dL (12.0-16.0); IMMATURE GRANULOCYTES 0.2 %; IMMATURE GRANULOCYTES ABSOLUTE 0.01 10/3/uL (0.0-0.11); LYMPHOCYTES 35.5 %; LYMPHOCYTES ABSOLUTE 1.56 10/3/uL (0.67-4.30); MEAN CORPUS HGB CONC 32.6 g/dL (32.0-36.0); MEAN CORPUSCULAR HEMOGLOB 30.3 pg (26.0-34.0); MEAN CORPUSCULAR VOLUME 93.2 fL (80-100); MEAN PLATELET VOLUME 10.6 fL (9.2-13.0); MONOCYTES 10.9 %; MONOCYTES ABSOLUTE 0.48 10/3/uL (0.21-1.20); NEUTROPHILS 48.4 %; NEUTROPHILS ABSOLUTE 2.12 10/3/uL (2.02-8.40); PLATELET COUNT 188 10/3/uL (150-400); RBC DISTRIBUTION WIDTH 14.1 % (12.0-16.0); RED CELL COUNT 3.66 10/6/uL (4.0-5.6); WHITE BLOOD CELLS 4.4 10/3/uL (4.5-10.5)
[2016-11-20 04:31] LABS: MANUAL DIFF NO %
[2016-11-20 05:08] LABS: BUN (BLOOD UREA NITROGEN) 32 MG/DL (6-23); CALCIUM, SERUM 11.5 MG/DL (8.5-10.4); CHLORIDE, SERUM 104 MMOL/L (96-112); CO2 (CARBON DIOXIDE) 33 MMOL/L (24-34); CREATININE 2.06 MG/DL (0.55-1.02); FOLATE 17.1 NG/ML (>5.2); FREE T4 0.83 NG/DL (0.76-1.46); GFR AFRICAN AMERICAN 30 ML/MIN (>=60); GFR NON AFRICAN AMERICAN 26 ML/MIN (>=60); GLUCOSE, SERUM 81 MG/DL (60-99); POTASSIUM, SERUM 4.2 MMOL/L (3.5-5.3); SODIUM, SERUM 143 MMOL/L (135-148)
[2016-11-20 12:43] LABS: PROCALCITONIN <0.05 ng/mL (<0.5)
[2016-11-20 13:16] LABS: LUTEINIZING HORMONE 3.9 MIU/ML
[2016-11-20 13:17] LABS: FOLLICLE STIMULATING HORMONE 33.6 MIU/ML
[2016-11-20 19:15] LABS: PROLACTIN 89.8 NG/ML
[2016-11-20 19:17] LABS: ASCORBIC ACID (UR NOT ORDER) NEG (NEG); BILIRUBIN, URINE NEGATIVE (NEG); KETONE, URINE NEGATIVE (NEG); LEUKOCYTE ESTERASE(NOT OR NEG (NEG); WBC (NOT ORDERED) (RFLEX) < 1 (0-5)
[2016-11-21 08:27] LABS: BUN (BLOOD UREA NITROGEN) 29 MG/DL (6-23); CHLORIDE, SERUM 107 MMOL/L (96-112); CO2 (CARBON DIOXIDE) 35 MMOL/L (24-34); CREATININE 1.58 MG/DL (0.55-1.02); GFR AFRICAN AMERICAN 42 ML/MIN (>=60); GFR NON AFRICAN AMERICAN 36 ML/MIN (>=60); GLUCOSE, SERUM 67 MG/DL (60-99); POTASSIUM, SERUM 4.4 MMOL/L (3.5-5.3); SODIUM, SERUM 144 MMOL/L (135-148)
[2016-11-21 08:30] LABS: CALCIUM, SERUM 9.7 MG/DL (8.5-10.4)
[2016-11-21] MEDS ORDERED: PEP20 PO (19:23)
[2016-11-21] MEDS ORDERED: IMOD PO (19:25)
[2016-11-24 15:54] LABS: VITAMIN B1, WHOLE BLOOD 202 nmol/L (70-180)
[2016-11-26 19:11] LABS: ACETYLCHOLINE REC BINDING AB <0.30 nmol/L (<0.31); ACETYLCHOLINE RECEPT BLOCK AB <15 % (<15); ACETYLCHOLINE RECEPTOR MOD AB <1 % (<32); STRIATED MUSCLE ANTIBODY Negative (NEG); STRIATED MUSCLE ANTIBODY TITER ND
[2016-12-30] MEDS ORDERED: morphine PO (15:09)
[2016-12-30] MEDS ORDERED: NUCYNTA50 MG PO (15:10)
[2016-12-30] MEDS ORDERED: MARI5 PO (15:10)
== END 2016-11-21 21:12 | disposition home or self-care (01) | DRG 392 ==
LOC: 4SO 16:40
PROVIDERS: Internal Medicine Gastroenterology; Psychiatry & Neurology Neurology; Student in an Organized Health Care Education/Training Program
DX: K91.2 Postsurgical malabsorption, not elsewhere classified (principal); N17.9 Acute kidney failure, unspecified; B37.81 Candidal esophagitis; T18.2XXA Foreign body in stomach, initial encounter; Z94.89 Other transplanted organ and tissue status; K31.84 Gastroparesis; M32.9 Systemic lupus erythematosus, unspecified; J98.11 Atelectasis; Y83.6 Removal of other organ (partial) (total) as the cause of abnormal reaction of the patient, or of later complication, without mention of misadventure at the time of the procedure; Y92.009 Unspecified place in unspecified non-institutional (private) residence as the place of occurrence of the external cause; R13.12 Dysphagia, oropharyngeal phase; E86.0 Dehydration; R19.7 Diarrhea, unspecified; E03.9 Hypothyroidism, unspecified; I87.8 Other specified disorders of veins; F31.9 Bipolar disorder, unspecified; Z79.899 Other long term (current) drug therapy; Z86.718 Personal history of other venous thrombosis and embolism; Z87.440 Personal history of urinary (tract) infections; Z90.49 Acquired absence of other specified parts of digestive tract; Z87.442 Personal history of urinary calculi; Z88.0 Allergy status to penicillin; Z88.8 Allergy status to other drugs, medicaments and biological substances; Z79.891 Long term (current) use of opiate analgesic; F41.9 Anxiety disorder, unspecified; G47.00 Insomnia, unspecified; R47.89 Other speech disturbances
CPT/HCPCS: 36561; 70450; 71010; 74177; 74230; 77001; 80048; 80053; 80069; 80074; 80076; 81001; 82088; 82140; 82533; 82607; 82746; 83001; 83002; 83519; 83519-59; 83690; 83735; 83880; 84134; 84145; 84146; 84244; 84425; 84439; 84443; 84484; 84550; 85025; 86039; 86140; 86235; 86235-59; 86255; 87389; 92611-GN; 93005; 93306; 93970; 94640; A9270-GY; C1751; J0690; J0834; J1720; J2250; J2370; J2405; J3010; P9047; Q0166; Q9967